=== PATIENT | female | born 1965 | race Two or more races ===

== ENCOUNTER 2023-05-25 05:41 | Day surgery (SDC) | payer OTHER ==
[~2023-05-25 05:41] MED LIST: CRESTOR10 MG PO; HORIZANT300 MG PO; LEVOXYL75 MCG PO
== END 2023-05-25 17:00 | disposition home or self-care (01) ==
LOC: CIR.AMB 05:41
PROVIDERS: ATTEND Surgery Surgery of the Hand
DX: M65.841 Other synovitis and tenosynovitis, right hand (principal); Z20.822 Contact with and (suspected) exposure to COVID-19